=== PATIENT | male | born 1990 | race Caucasian/White ===

== ENCOUNTER 2025-08-07 06:18 | Emergency (ER) | payer BC, SELFPAY ==
[2025-08-07 06:33] VITALS: BP 144/84
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
[2025-08-07 08:29] VITALS: BP 124/72
[2025-08-07 08:33] LABS: Hematocrit 41.8 % (39.0-52.0); Hemoglobin 14.8 g/dL (13.0-18.0); Mean Corp Hgb Conc. 35.4 g/dL (33.0-37.0); Mean Corpuscular Volume 84.8 fL (80.0-94.0); Nucleated Red Blood Cells % 0 % (-); Platelet Count 259 10^3/uL (130-400); Red Cell Dist. Width 12.7 % (11.5-14.5)
[2025-08-07 08:53] LABS: ALT (SGPT) 26 U/L (0-50); AST (SGOT) 29 U/L (17-59); Albumin 4.6 g/dl (3.5-5.0); Alkaline Phosphatase 64 U/L (38-126); Blood Urea Nitrogen 21 mg/dl (9-20); Calcium 9.4 mg/dl (8.4-10.2); Carbon Dioxide 25 mmol/L (22-30); Chloride 106 mmol/L (98-107); Glucose 115 mg/dl (70-99); Potassium 4.6 mmol/L (3.5-5.1); Sodium 136 mmol/L (135-145); Total Protein 6.9 g/dl (6.3-8.2); eGFR > 60.00
[2025-08-07] MEDS: TORADOL 15 MG IV (10:14)
[2025-08-07 10:19] VITALS: BP 134/96
[2025-08-07 11:00] VITALS: BP 122/75
== END 2025-08-07 11:28 | disposition short-term general hospital (02) ==
LOC: EMR 06:18
PROVIDERS: EMERGENCY PHYSICIAN Emergency Medicine; FAMILY PHYSICIAN Family Medicine
DX: G93.9 Disorder of brain, unspecified (principal); I10 Essential (primary) hypertension
CPT/HCPCS: 99285; 96374; 70450; 80053; 84443; 85025